=== PATIENT | female | born 2005 | race Caucasian/White ===

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

== ENCOUNTER 2023-01-04 10:28 | Emergency (ER) | payer MEDICAID ==
[2023-01-04] MEDS ORDERED: Amoxicillin/Clavulanate K 875-125 MG Tab PO STA (11:17)
[2023-01-04 11:40] VITALS: BP 120/72; PULSE 90
== END 2023-01-04 11:39 | disposition home or self-care (01) ==
LOC: MW.ED 10:28
DX: H65.01 Acute serous otitis media, right ear (principal); J36 Peritonsillar abscess; F17.210 Nicotine dependence, cigarettes, uncomplicated; Z91.018 Allergy to other foods
CPT/HCPCS: 99282; A9270; 99283

== ENCOUNTER 2023-11-28 22:24 | Emergency (ER) | payer MEDICAID ==
[2023-11-28 23:27] LABS: BASOPHILS ABSOLUTE AUTO 0.03 K/uL (0.00-0.20); BASOPHILS PERCENT AUTO 0.3 % (0.0-1.0); EOSINOPHILS ABSOLUTE AUTO 0.07 K/uL (0.00-0.45); EOSINOPHILS PERCENT AUTO 0.8 % (0.0-6.0); HEMATOCRIT 41.2 % (37.0-47.0); IMMATURE GRAN ABSOLUTE AUTO 0.02 K/uL (0.00-0.05); IMMATURE GRAN PERCENT AUTO 0.2 % (0.0-0.4); LYMPHOCYTES ABSOLUTE AUTO 2.54 K/uL (1.00-4.80); LYMPHOCYTES PERCENT AUTO 28.2 % (24.0-44.0); MEAN CORPUSCULAR HEMOGLOBIN 29.9 pg (28.0-32.0); MEAN CORPUSCULAR VOLUME 87.8 fL (83.0-99.0); MEAN PLATELET VOLUME 10.2 fL (9.4-12.3); MONOCYTES ABSOLUTE AUTO 0.43 K/uL (0.00-0.80); MONOCYTES PERCENT AUTO 4.8 % (0.0-8.0); NEUTROPHILS ABSOLUTE AUTO 5.93 K/uL (1.80-7.70); NEUTROPHILS PERCENT AUTO 65.7 % (41.0-71.0); PLATELET COUNT,PLT 267 K/uL (150-400); RED BLOOD CELL COUNT 4.69 M/uL (4.10-5.30); WHITE BLOOD CELL COUNT,WBC 9.02 K/uL (3.9-11.3)
[2023-11-28 23:43] LABS: APPEARANCE,URINE SLT CLOUDY; BILIRUBIN,URINE NEGATIVE (NEGATIVE); COLOR,URINE YELLOW; GLUCOSE,URINE NEGATIVE (NEGATIVE); KETONES,URINE NEGATIVE (NEGATIVE); LEUKOCYTE ESTERASE,URINE MODERATE (NEGATIVE); NITRITE,URINE NEGATIVE (NEGATIVE); OCCULT BLOOD,URINE LARGE (NEGATIVE); PROTEIN,URINE TRACE mg/dL (NEGATIVE); UROBILINOGEN,URINE 0.2 EU/dL (<2.0)
[2023-11-28 23:52] LABS: BACTERIA,URINE 1+ (NEGATIVE); EPITHELIAL CELLS,URINE MODERATE (NONE-FEW); MUCUS,URINE LIGHT (NONE-MOD); WBC,URINE 20-30 (0-5/HPF); YEAST,URINE FEW
[2023-11-29] MEDS: Cephalexin 500 MG Cap PO ONE (00:46)
[2023-11-29 02:56] VITALS: BP 126/77; PULSE 82
== END 2023-11-29 02:56 | disposition home or self-care (01) ==
LOC: MW.ED 22:24
DX: O20.0 Threatened abortion (principal); Z91.018 Allergy to other foods; Z3A.01 Less than 8 weeks gestation of pregnancy
CPT/HCPCS: 36415; 76801; 81001; 81025; 84702; 85025; 86850; 86900; 86901; 90384; 96372; 99284; A9270; 36430; J2790

== ENCOUNTER 2024-07-09 05:33 | Inpatient (IN) | payer MEDICAID ==
[2024-07-09] MEDS ORDERED: Tranexamic Acid IN NACL,ISO-OS 1,000 MG in Premix Bag 1 BAG IV PRN (07:12)
[2024-07-09] MEDS ORDERED: Misoprostol 200 MCG Tab PO PRN (07:12)
[2024-07-09] MEDS ORDERED: Water For Irrigation,Sterile 1,000 ML Container IRR PRN (07:12)
[2024-07-09] MEDS ORDERED: Sodium Chloride 0.9% 10 ML Syringe FLUSH PRN (07:12)
[2024-07-09] MEDS ORDERED: Carboprost Tromethamine 250 MCG/1 mL Vial IM PRN (07:12)
[2024-07-09] MEDS ORDERED: Butorphanol 2 MG/ML SDV IVPUSH PRN (07:12)
[2024-07-09] MEDS ORDERED: Sodium Chloride 0.9% 20 ML SDV IV PRN (07:12)
[2024-07-09] MEDS ORDERED: Sodium Chloride 0.9% 2.5 ML Syringe FLUSH PRN (07:12)
[2024-07-09] MEDS ORDERED: Lidocaine 1% 50 ML MDV INJECT PRN (07:12)
[2024-07-09] MEDS ORDERED: Ampicillin 1 GM in Sodium Chloride 0.9% 50 ML IV SCH (07:30)
[2024-07-09 07:53] LABS: HEMATOCRIT 34.7 % (37.0-47.0); HEMOGLOBIN 11.6 g/dL (12.0-16.0); MEAN CORPUSCULAR HEMOGLOBIN 28.2 pg (28.0-32.0); MEAN CORPUSCULAR HGB CONC 33.4 g/dL (32.0-36.0); MEAN CORPUSCULAR VOLUME 84.4 fL (83.0-99.0); MEAN PLATELET VOLUME 11.1 fL (9.4-12.3); PLATELET COUNT,PLT 227 K/uL (150-400); RED BLOOD CELL COUNT 4.11 M/uL (4.10-5.30); WHITE BLOOD CELL COUNT,WBC 8.95 K/uL (3.9-11.3)
[2024-07-09] MEDS: Ampicillin 2 GM in Sodium Chloride 0.9% 100 ML IV ONE (08:53)
[2024-07-09] MEDS ORDERED: Terbutaline 1 MG/ML SDV SUBCUT PRN (09:22)
[2024-07-09 09:23] LABS: AMPHETAMINES SCREEN, URINE NEGATIVE (CUTOFF=500); BARBITURATE SCREEN,URINE NEGATIVE (CUTOFF=200); BENZODIAZEPINES SCREEN,URINE NEGATIVE (CUTOFF=150); BUPRENORPHINE SCREEN,URINE NEGATIVE (CUTOFF=10); METHADONE SCREEN, URINE NEGATIVE (CUTOFF=200); METHAMPHETAMINES SCREEN, URINE NEGATIVE (CUTOFF=500); OXYCODONE SCREEN,URINE NEGATIVE (CUT0FF=100); PCP SCREEN,URINE NEGATIVE (CUTOFF=25); THC SCREEN,URINE 20 NG/ML PRESUMPTIVE POSITIVE (CUTOFF=50)
[2024-07-09] MEDS ORDERED: Oxytocin/0.9 % Sodium Chloride 30 UNIT/500 ML BAG IV SCH (09:30)
[2024-07-09] MEDS: Misoprostol 25 MCG (1/4 of 100 MCG) Tab PO PRN ×2 (10:37→14:37)
[2024-07-09] MEDS: Ampicillin 1 GM in Sodium Chloride 0.9% 50 ML IV SCH (12:25)
[2024-07-09] MEDS: Lactated Ringers 1,000 ML IV SCH (17:40)
[2024-07-09] MEDS: Ondansetron 4 MG/2 ML SDV IVPUSH PRN (17:55)
[2024-07-09] MEDS: Ropivacaine HCl/PF 200 ML ONE (18:39)
[2024-07-09] MEDS ORDERED: ePHEDrine 50 MG/ML SDV IVPUSH PRN (21:06)
[2024-07-09] MEDS ORDERED: Phenylephrine HCl In 0.9% NaCl 1 MG/10 ML Syringe IVPUSH PRN (21:06)
[2024-07-09] MEDS ORDERED: ePHEDrine 50 MG/ML SDV IM PRN (21:07)
[2024-07-09] MEDS ORDERED: Ropivacaine HCl/PF 400 MG in Premix Bag 1 BAG EPIDUR SCH (21:15)
[2024-07-09] MEDS ORDERED: dexmedeTOMIDine HCl 200 MCG/2 ML SDV EPIDUR SCH (21:15)
[2024-07-10] MEDS: Oxytocin/0.9 % Sodium Chloride 30 UNIT/500 ML BAG IV SCH (02:37)
[2024-07-10] MEDS: Methylergonovine 0.2 MG/1 ML Amp IM PRN (02:51)
[2024-07-10] MEDS ORDERED: Ibuprofen 800 MG Tab PO PRN (03:34)
[2024-07-10] MEDS ORDERED: Docusate Sodium 100 MG Cap PO PRN (03:34)
[2024-07-10] MEDS ORDERED: Acetaminophen 500 MG Tab PO PRN (03:34)
[2024-07-10 06:59] LABS: HEMATOCRIT 34.5 % (37.0-47.0); HEMOGLOBIN 11.5 g/dL (12.0-16.0); MEAN CORPUSCULAR HEMOGLOBIN 28.3 pg (28.0-32.0); MEAN CORPUSCULAR HGB CONC 33.3 g/dL (32.0-36.0); MEAN CORPUSCULAR VOLUME 84.8 fL (83.0-99.0); MEAN PLATELET VOLUME 11.4 fL (9.4-12.3); PLATELET COUNT,PLT 209 K/uL (150-400); RED BLOOD CELL COUNT 4.07 M/uL (4.10-5.30); WHITE BLOOD CELL COUNT,WBC 14.76 K/uL (3.9-11.3)
[2024-07-10] MEDS: Witch Hazel Medicated Pads 40/Jar TOP PRN (09:13)
[2024-07-10] MEDS: Lanolin 100% Cream 7 GM Tube TOP PRN (09:14)
[2024-07-10] MEDS: Benzocaine/Menthol 20%-0.5% Spray 78 GM Cannister TOP PRN (09:14)
[2024-07-10] MEDS: Bupivacaine 0.5% 10 ML SDV ONE (23:38)
[2024-07-10] MEDS: Bupivacaine 0.5% 10 ML SDV INJECT ONE (23:38)
[2024-07-10] MEDS: Phenylephrine HCl In 0.9% NaCl 1 MG/10 ML Syringe ONE (23:38)
[2024-07-11 07:00] LABS: HEMATOCRIT 35.3 % (37.0-47.0); HEMOGLOBIN 11.4 g/dL (12.0-16.0); MEAN CORPUSCULAR HEMOGLOBIN 27.9 pg (28.0-32.0); MEAN CORPUSCULAR HGB CONC 32.3 g/dL (32.0-36.0); MEAN CORPUSCULAR VOLUME 86.3 fL (83.0-99.0); MEAN PLATELET VOLUME 10.8 fL (9.4-12.3); PLATELET COUNT,PLT 185 K/uL (150-400); RED BLOOD CELL COUNT 4.09 M/uL (4.10-5.30); WHITE BLOOD CELL COUNT,WBC 10.26 K/uL (3.9-11.3)
[2024-07-11 09:15] VITALS: BP 113/70; PULSE 88
== END 2024-07-11 14:41 | disposition home or self-care (01) | DRG 807 ==
LOC: MW.OBCHECK 05:33 → MW.OB 05:33 → MW.OBCHECK 07:10 → MW.OB 07:12 → OBSVTOIN 07-10 02:36 → MW.OB 07-10 09:30
PROVIDERS: ADMIT Obstetrics & Gynecology; ATTEND Obstetrics & Gynecology Obstetrics
PROC: 10E0XZZ Delivery of Products of Conception, External Approach (ICD-10-PCS; principal; 2024-07-10)
PROC: 0KQM0ZZ Repair Perineum Muscle, Open Approach (ICD-10-PCS; 2024-07-10)
DX: O42.02 Full-term premature rupture of membranes, onset of labor within 24 hours of rupture (principal); Z37.0 Single live birth; O26.893 Other specified pregnancy related conditions, third trimester; O77.0 Labor and delivery complicated by meconium in amniotic fluid; O70.1 Second degree perineal laceration during delivery; O73.1 Retained portions of placenta and membranes, without hemorrhage; Z3A.38 38 weeks gestation of pregnancy; Z67.41 Type O blood, Rh negative
CPT/HCPCS: 36415; 51702; 59025; 59409; 80305-QW; 84112; 85027; 86592; 86850; 86900; 86901; A9270-GY; J0290; J0665; J2210; J2371; J2405; J2590; J2795; J3490; J7120

== ENCOUNTER 2025-06-10 04:29 | Emergency (ER) | payer MEDICAID ==
[2025-06-10 04:54] VITALS: BP 138/79; PULSE 76
== END 2025-06-10 05:15 | disposition home or self-care (01) ==
LOC: MW.ED 04:29
DX: O99.612 Diseases of the digestive system complicating pregnancy, second trimester (principal); K02.9 Dental caries, unspecified; Z91.018 Allergy to other foods; Z79.899 Other long term (current) drug therapy; Z3A.23 23 weeks gestation of pregnancy
CPT/HCPCS: 64400; 99282; J0665; 99283

== ENCOUNTER 2025-09-11 08:50 | Inpatient (IN) | payer MEDICAID ==
[2025-09-11 09:32] LABS: APPEARANCE,URINE CLEAR; GLUCOSE,URINE NEGATIVE (NEGATIVE); OCCULT BLOOD,URINE LARGE (NEGATIVE)
[2025-09-11 09:46] LABS: EPITHELIAL CELLS,URINE FEW (NONE-FEW)
[2025-09-11] MEDS ORDERED: Water For Irrigation,Sterile 1,000 ML Container IRR PRN (09:46)
[2025-09-11] MEDS ORDERED: Sodium Chloride 0.9% 10 ML Syringe FLUSH PRN (09:46)
[2025-09-11] MEDS ORDERED: Carboprost Tromethamine 250 MCG/1 mL Vial IM PRN (09:46)
[2025-09-11] MEDS ORDERED: Sodium Chloride 0.9% 2.5 ML Syringe FLUSH PRN (09:46)
[2025-09-11] MEDS ORDERED: Ondansetron 4 MG/2 ML SDV IVPUSH PRN ×2 (09:46→12:06)
[2025-09-11] MEDS ORDERED: Butorphanol 1 MG/ML SDV IVPUSH PRN (09:46)
[2025-09-11 10:26] LABS: CREATININE,URINE RAND 278.6 mg/dL; PROTEIN CREATININE RATIO,URINE 0.4; PROTEIN,URINE RANDOM 106.6 mg/dL (<11.9)
[2025-09-11] MEDS: Lactated Ringers 1,000 ML IV SCH (10:30)
[2025-09-11 10:50] LABS: MEAN PLATELET VOLUME 11.6 fL (9.4-12.3); NRBC ABSOLUTE 0.00 K/uL (0.00-0.02); NRBC PERCENT 0.0 /100WBC (0.0-0.2); PLATELET COUNT,PLT 198 K/uL (150-400); RED BLOOD CELL COUNT 4.32 M/uL (4.10-5.30); WHITE BLOOD CELL COUNT,WBC 9.19 K/uL (3.9-11.3)
[2025-09-11] MEDS ORDERED: Ropivacaine HCl/PF 200 ML ONE (10:55)
[2025-09-11] MEDS: Ropivacaine HCl/PF 400 MG in Premix Bag 1 BAG EPIDUR SCH (11:10)
[2025-09-11 11:15] LABS: A/G RATIO 0.7 (0.9-1.6); ALANINE AMINOTRANSFERASE,ALT 14.0 IU/L (14-63); ASPARTATE AMNIOTRANSFERASE,AST 14.0 IU/L (15-37); BILIRUBIN TOTAL 0.3 mg/dL (0.2-1.0); BLOOD UREA NITROGEN,BUN 8.0 mg/dL (7.0-18.0); CARBON DIOXIDE,CO2 16.9 mmol/L (21.0-32.0); CHLORIDE,CL 106.0 mmol/L (98-107); CREATININE 0.6 mg/dL (0.6-1.0); EST CRCL DRUG DOSING (CG) 159.04 mL/min; ESTIMATED GFR 130.0 mL/min (>60); GLUCOSE RANDOM 79.0 mg/dL (74-106); POTASSIUM,K 3.9 mmol/L (3.5-5.1); PROTEIN TOTAL,TP 6.6 g/dL (6.4-8.2); SODIUM,NA 138.0 mmol/L (136-145)
[2025-09-11] MEDS ORDERED: ePHEDrine 50 MG/ML SDV IVPUSH PRN (11:20)
[2025-09-11] MEDS ORDERED: dexmedeTOMIDine HCl 200 MCG/2 ML SDV EPIDUR SCH (11:30)
[2025-09-11] MEDS: Oxytocin/0.9 % Sodium Chloride 30 UNIT/500 ML BAG IV SCH (11:45)
[2025-09-11] MEDS ORDERED: Measles, Mumps & Rubella Vaccine 0.5 ML SDV SUBCUT ONE (12:06)
[2025-09-11] MEDS ORDERED: Lanolin 100% Cream 7 GM Tube TOP PRN (12:06)
[2025-09-11] MEDS ORDERED: Aluminum Hydroxide/Magnesium Hydroxide/Simethicone Susp 30 ML Cup PO PRN (12:06)
[2025-09-11 12:24] LABS: PH,UMBILICAL ARTERIAL 7.17 (7.18-7.38); PH,UMBILICAL VENOUS 7.26 (7.25-7.45)
[2025-09-11] MEDS: Witch Hazel Medicated Pads 40/Jar TOP PRN (18:32)
[2025-09-11] MEDS: Benzocaine/Menthol 20%-0.5% Spray 78 GM Cannister TOP PRN (18:32)
[2025-09-12 06:35] LABS: GROUP B STREP BY PCR NEGATIVE (NEGATIVE)
[2025-09-12 06:49] LABS: BASOPHILS ABSOLUTE AUTO 0.02 K/uL (0.00-0.20); BASOPHILS PERCENT AUTO 0.2 % (0.0-1.0); EOSINOPHILS ABSOLUTE AUTO 0.03 K/uL (0.00-0.45); EOSINOPHILS PERCENT AUTO 0.4 % (0.0-6.0); IMMATURE GRAN ABSOLUTE AUTO 0.03 K/uL (0.00-0.05); IMMATURE GRAN PERCENT AUTO 0.4 % (0.0-0.4); LYMPHOCYTES ABSOLUTE AUTO 1.67 K/uL (1.00-4.80); LYMPHOCYTES PERCENT AUTO 20.0 % (24.0-44.0); MEAN PLATELET VOLUME 11.5 fL (9.4-12.3); MONOCYTES ABSOLUTE AUTO 0.39 K/uL (0.00-0.80); MONOCYTES PERCENT AUTO 4.7 % (0.0-8.0); NEUTROPHILS ABSOLUTE AUTO 6.19 K/uL (1.80-7.70); NEUTROPHILS PERCENT AUTO 74.3 % (41.0-71.0); NRBC ABSOLUTE 0.00 K/uL (0.00-0.02); NRBC PERCENT 0.0 /100WBC (0.0-0.2); PLATELET COUNT,PLT 162 K/uL (150-400); RED BLOOD CELL COUNT 4.02 M/uL (4.10-5.30); WHITE BLOOD CELL COUNT,WBC 8.33 K/uL (3.9-11.3)
[2025-09-12 07:09] LABS: BLOOD UREA NITROGEN,BUN 6.0 mg/dL (7.0-18.0); CARBON DIOXIDE,CO2 21.6 mmol/L (21.0-32.0); CHLORIDE,CL 106.0 mmol/L (98-107); CREATININE 0.7 mg/dL (0.6-1.0); EST CRCL DRUG DOSING (CG) 136.32 mL/min; GLUCOSE RANDOM 76.0 mg/dL (74-106); POTASSIUM,K 3.9 mmol/L (3.5-5.1); SODIUM,NA 140.0 mmol/L (136-145)
[2025-09-12 07:12] LABS: ESTIMATED GFR 125.0 mL/min (>60)
[2025-09-12] MEDS: dexmedeTOMIDine HCl 200 MCG/2 ML SDV ONE (08:53)
[2025-09-12 12:41] VITALS: BP 138/87; PULSE 88
== END 2025-09-12 13:20 | disposition home or self-care (01) | DRG 807 ==
LOC: MW.OBCHECK 08:50 → MW.OB 08:51 → MW.OBCHECK 10:02 → OBSVTOIN 10:05 → MW.OB 10:05
PROVIDERS: ADMIT Obstetrics & Gynecology; ATTEND Obstetrics & Gynecology Obstetrics
PROC: 10D07Z6 Extraction of Products of Conception, Vacuum, Via Natural or Artificial Opening (ICD-10-PCS; principal; 2025-09-11)
PROC: 0KQM0ZZ Repair Perineum Muscle, Open Approach (ICD-10-PCS; 2025-09-11)
PROC: 3E0R3BZ Introduction of Anesthetic Agent into Spinal Canal, Percutaneous Approach (ICD-10-PCS; 2025-09-11)
DX: O99.824 Streptococcus B carrier state complicating childbirth (principal); Z37.0 Single live birth; O99.02 Anemia complicating childbirth; O76 Abnormality in fetal heart rate and rhythm complicating labor and delivery; O99.214 Obesity complicating childbirth; O77.0 Labor and delivery complicated by meconium in amniotic fluid; Z3A.39 39 weeks gestation of pregnancy; O70.1 Second degree perineal laceration during delivery; O64.0XX0 Obstructed labor due to incomplete rotation of fetal head, not applicable or unspecified; O42.92 Full-term premature rupture of membranes, unspecified as to length of time between rupture and onset of labor
CPT/HCPCS: 01967; 36415; 59025; 59409; 80048; 80053; 81001; 82570; 82803; 84112; 84156; 85025; 85027; 86592; 86850; 86900; 86901; 87086; 87653; A9270-GY; J0290; J0665; J2371; J2590; J2795; J7120